=== PATIENT | male | born 1955 | race Caucasian/White ===

== ENCOUNTER 2017-04-17 07:52 | Day surgery (SDC) | payer OTHER ==
[2017-04-12 14:35] VITALS: BMI 24.3
[~2017-04-17 07:52] MED LIST: ALPRAZolam 0.25 MG TAB PO PRN; ASPIRIN 325 MG TAB PO ONE; SODIUM CHLORIDE 0.9% 1,000 ML in EMPTY BAG 1 BAG IV ONE
[2017-04-17 08:08] VITALS: TEMP 98.2
[2017-04-17] MEDS ORDERED: MIDAZOLAM 2 MG/2 ML VIAL ONE (08:42)
[2017-04-17] MEDS ORDERED: fentaNYL (PF) 50 MCG/ML 2 ML AMP ONE (08:42)
[2017-04-17] MEDS ORDERED: MIDAZOLAM 2 MG/2 ML VIAL IV ONE (08:45)
[2017-04-17] MEDS ORDERED: LIDOCAINE 2% INJ 20 MG/ML SQ ONE (08:45)
[2017-04-17] MEDS ORDERED: fentaNYL (PF) 50 MCG/ML 2 ML AMP IV ONE (08:46)
[2017-04-17] MEDS ORDERED: IOHEXOL 350 MG/ML 125ML BOTTLE INJ ONE (09:03)
[2017-04-17] MEDS ORDERED: RX INFO: IV CONTRAST WAS GIVEN 1 EACH MISC MISCELLANE PRN (09:04)
[2017-04-17] MEDS ORDERED: SODIUM CHLORIDE 0.9% 1,000 ML IV SCH (09:15)
--- NOTE | 2017-04-17 10:35 | CC ---
CARDIAC CATHETERIZATION REPORT INDICATION: This is a 61-year-old gentleman who presented to me with symptoms of exertional shortness of breath That we thought were anginal equivalent. Had an echocardiogram that showed normal LV function. I could not perform a stress test on him as he was too bradycardic to go through a Lexiscan, dobutamine or Persantine and could not walk on the treadmill. He walked barely for 2 minutes, became extremely short of breath but did not have any chronotropic incompetence. Given the unexplained performed shortness of breath, I advised him to undergo cardiac catheterization to rule out ischemic heart disease, especially multivessel coronary artery disease and left main coronary artery disease. Patient had been explained of risks, benefits and alternatives, understood and accepted. I could not start the patient on beta blockers as patient is very bradycardic prior to cath. PROCEDURE NOTE: After obtaining informed consent, left heart catheterization and coronary angiogram and LV gram are performed via the right femoral artery using standard Catarino catheters. Patient tolerated the procedure well without any obvious immediate complications. Patient received moderate conscious sedation and a total sedation time was 16 minutes. FINDINGS: 1. Hemodynamics left ventricular end-diastolic pressure is 16 mm. There is no significant gradient across the aortic valve. 2. LEFT VENTRICULOGRAM: Left ventriculogram is performed in COSTELLO position shows normal left ventricular size and systolic function with an ejection fraction of 60%. 3. ANGIOGRAPHIC DATA:. 4. LEFT MAIN CORONARY ARTERY: Left main coronary artery is a normal-sized vessel and is free of stenosis. Divides into left anterior descending coronary artery and circumflex coronary artery. LAD and its branches, circumflex coronary artery and its branches are free of significant stenosis. 5. Right coronary artery is a dominant vessel and is free of significant stenosis. CONCLUSION: Normal coronary arteries. Normal left ventricular function. Normal left ventricular end-diastolic pressure. PLAN: The exact etiology for patient's shortness of breath is unclear, but does not seem to be cardiac in origin. #I am going to refer the patient to a council member for further evaluation of his shortness of breath. At the end of the procedure patient underwent a femoral angiogram and Angio-Seal was deployed for hemostasis. MMODL / IJN: [id number] /
[2017-04-17 10:44] VITALS: RESP 16
[2017-04-17 13:44] VITALS: BP 126/84; PULSE 56
[2017-04-17] MEDS ORDERED: ACETAMINOPHEN TAB 325 MG TAB ONE (14:30)
== END 2017-04-17 14:45 | disposition home or self-care (01) ==
LOC: CATHCVL 07:52
PROVIDERS: ATTEND Internal Medicine Cardiovascular Disease
DX: R06.02 Shortness of breath (principal); R00.1 Bradycardia, unspecified; Z87.891 Personal history of nicotine dependence
CPT/HCPCS: 93458; 99152; C1760; C1894; C1769; J2001; J2250; J3010; Q9967